=== PATIENT | male | born 1980 | race Caucasian/White ===

== ENCOUNTER 2016-05-05 21:09 | Emergency (ER) | payer MEDICARE | END 2016-05-06 01:03 | disposition home or self-care (01) | LOC: ER 21:09 | DX: M25.512 Pain in left shoulder (principal); W08.XXXA Fall from other furniture, initial encounter; Y92.019 Unspecified place in single-family (private) house as the place of occurrence of the external cause; F41.9 Anxiety disorder, unspecified; Z88.0 Allergy status to penicillin | CPT/HCPCS: 71020; 73030; 94664; 99283-25 ==

== ENCOUNTER 2016-06-11 19:08 | Emergency (ER) | payer MEDICARE | END 2016-06-11 22:30 | disposition left against medical advice (07) | LOC: ER 19:08 | DX: Z53.21 Procedure and treatment not carried out due to patient leaving prior to being seen by health care provider (principal) ==

== ENCOUNTER 2016-06-29 21:08 | Emergency (ER) | payer MEDICARE | END 2016-06-29 22:28 | disposition home or self-care (01) | LOC: ER 21:08 | DX: S22.32XD Fracture of one rib, left side, subsequent encounter for fracture with routine healing (principal); R07.81 Pleurodynia; F17.210 Nicotine dependence, cigarettes, uncomplicated; Z88.6 Allergy status to analgesic agent | CPT/HCPCS: 71020; 99283-25 ==

== ENCOUNTER 2016-07-02 20:35 | Emergency (ER) | payer MEDICARE | END 2016-07-03 00:08 | disposition home or self-care (01) | LOC: ER 20:35 | DX: S32.2XXA Fracture of coccyx, initial encounter for closed fracture (principal); M54.5 Low back pain; W17.89XA Other fall from one level to another, initial encounter; Y93.44 Activity, trampolining; F17.210 Nicotine dependence, cigarettes, uncomplicated; Z88.0 Allergy status to penicillin | CPT/HCPCS: 72100; 72220; 96372; 99283-25 ==

== ENCOUNTER 2016-07-08 12:46 | Emergency (ER) | payer MEDICARE | END 2016-07-08 13:35 | disposition home or self-care (01) | LOC: ER 12:46 | DX: S32.2XXD Fracture of coccyx, subsequent encounter for fracture with routine healing (principal); M53.3 Sacrococcygeal disorders, not elsewhere classified; F17.210 Nicotine dependence, cigarettes, uncomplicated; Z88.0 Allergy status to penicillin | CPT/HCPCS: 99282 ==